=== PATIENT | male | born 1985 | race Caucasian/White ===

== ENCOUNTER 2021-11-02 13:22 | Emergency (ER) | payer SELFPAY ==
[~2021-11-02] VITALS: Ht 172.7 cm; Wt 78.6 kg
[~2021-11-02 13:22] MED LIST: AMOX1TAB11 PO; LITH450T PO; QUET100T4 PO
[2021-11-02 13:30] VITALS: BP 118/61
[2021-11-02] MEDS ORDERED: DOCUSATE 100 MG/10 ML SOLUTION. AS STA (14:00)
--- NOTE | 2021-11-02 14:14 | PHYS DOC ---
Past Medical History Past Medical History: Bipolar (FITO SEPULVEDA Roger GROCERY DEPARTMENT MANAGER) Past Surgical History: No Surgical History (FITO SEPULVEDA GROC[employer] DEPARTMENT MANAGER) Smoking Status: Current Every Day Smoker Alcohol Use: None Drug Use: None (FITO SEPULVEDA GR[employer] DEPARTMENT MANAGER) General Adult EDM: Chief Complaint: EARACHE/EAR PAIN HPI: HPI: Patient is a 36 year old male with history of bipolar presenting to the ED today complaining of decreased hearing to the left ear that began 2 days ago. He states yesterday he used a Q-tip to the left ear and this morning woke up w ith some dots blood on his pillow. Patient denies any fever, coughing, nasal congestion. (FITO SEPULVEDA GROC[employer] DEPARTMENT MANAGER) Review of Systems: Review of Systems: Constitutional: Denies fever or chills. [] HENT: Reports decreased hearing to the left ear denies nasal congestion or sore throat. [] Respiratory: Denies cough or shortness of breath. [] Musculoskeletal: Denies back pain or joint pain. [] Integument: Denies rash. [] Neurologic: Denies headache, focal weakness or sensory changes. [] (ABNERCrysFITO Roger [employer]OC[employer] DEPARTMENT MANAGER) Heart Score: C/O Chest Pain: N/A Risk Factors: Risk Factors: DM, Current or recent (<one month) smoker, HTN, HLP, family history of CAD, obesity. Risk Scores: Score 0 - 3: 2.5% MACE over next 6 weeks - Discharge Home Score 4 - 6: 20.3% MACE over next 6 weeks - Admit for Clinical Observation Score 7 - 10: 72.7% MACE over next 6 weeks - Early Invasive Strategies (FITO SEPULVEDA Roger [employer]OC[employer] DEPARTMENT MANAGER) Current Medications: Current Medications Medications (Trade) Dose Ordered Sig/Jaida Start Time Stop Time Status Last Admin Dose Admin Docusate Sodium (Colace Solution) 100 mg 1X STAT 11/02/21 14:00 11/02/21 14:02 DC 11/02/21 14:00 100 MG (DERICKFITO Roger [employer] DEPARTMENT MANAGER) Allergies: Allergies: Allergies Coded Allergies Type Severity Reaction Last Updated Verified haloperidol Adverse Reaction Intermediate lock jaw 11/02/21 No (MARYTERESEFITO Spangler [employer] DEPARTMENT MANAGER) Physical Exam: PE: Constitutional: Well developed, well nourished, no acute distress, non-toxic appearance. [] HENT: Normocephalic, atraumatic, bilateral external ears normal, oropharynx moist, no oral exudates, nose normal. [] Left ear canal is impacted with cerumen, TM cannot be visualized, right ear canal is normal, no blood noted. Abdomen: Bowel sounds normal, soft, no tenderness, no masses, no pulsatile masses. [] Skin: Warm, dry, no erythema, no rash. [] Back: No tenderness, no CVA tenderness. [] Extremities: No tenderness, no cyanosis, no clubbing, ROM intact, no edema. [] Neurologic: Alert and oriented X 3, normal motor function, normal sensory function, no focal deficits noted. [] Psychologic: Affect normal, judgement normal, mood normal. [] (FITO SEPULVEDA APRN) Current Patient Data: Vital Signs: Vital Signs Date Time Temp Pulse Resp B/P (MAP) Pulse Ox O2 Delivery O2 Flow Rate FiO2 11/02/21 13:30 97.0 8 14 118/61 (80) 97 Room Air 97.0 (FITO SEPULVEDA APRN) EKG: EKG: [] (FITO SEPULVEDA APRN) Radiology/Procedures: Radiology/Procedures: [] (FITO SEPULVEDA APRN) Course & Med Decision Making: Course & Med Decision Making Pertinent Labs and Imaging studies reviewed. (See chart for details) This a 36-year-old male patient presenting to the ED today with cerumen impaction to the left ear. Given Colace to use at home to remove the earwax. Educated on how to use it. Follow-up with ENT or PCP in one week. Provided return precautions. (FITO SEPULVEDA APRN) Dragon Disclaimer: Dragon Disclaimer: This electronic medical record was generated, in whole or in part, using a voice recognition dictation system. (FITO SEPULVEDA APRN) Departure Departure Impression: Primary Impression: Impacted cerumen of left ear Disposition: 01 HOME / SELF CARE / HOMELESS Condition: STABLE Referrals: NO PCP (PCP) CHRISTIANO SCALES MD follow up in 1-2 weeks Patient Instructions: Cerumen Impaction-[employer] Additional Instructions: Your left ear canal is impacted with earwax. Please put 2 mL of Colace to the left ear once a day for 20 minutes and rinse it out. Do this for 5 days and most of the earwax should be gone. Follow-up with ENT in 1 week. You can also use over the counter Debrox for ear wax removal Scripts Carbamide Peroxide (EAR WAX REMOVAL) 15 Ml Drops 5 DROP EACH EAR DAILY for 7 Days, #1 BOTTLE 0 Refills Prov: FITO SEPULVEDA APRN 11/02/21 Attending Signature I have participated in the care of this patient and I have reviewed and agree with all pertinent clinical information above including history, exam, and recommendations. (EDDIE BA DO) FITO SEPULVEDA APRN Nov 02, 2021 14:14 EDDIE BA DO Nov 02, 2021 16:10
[2021-11-02] MEDS ORDERED: CARB-171 EACH EAR (14:26)
== END 2021-11-02 14:39 | disposition home or self-care (01) ==
LOC: ER 13:22
DX: H61.22 Impacted cerumen, left ear (principal); F31.9 Bipolar disorder, unspecified; F17.200 Nicotine dependence, unspecified, uncomplicated; Z88.8 Allergy status to other drugs, medicaments and biological substances
CPT/HCPCS: 99282